=== PATIENT | male | born 1995 | race African-American/Black ===

== ENCOUNTER 2019-10-16 02:21 | Emergency (ER) | payer OTHER ==
[~2019-10-16] VITALS: Ht 172.7 cm; Wt 75.0 kg
[2019-10-16 02:30] VITALS: BP 132/67
== END 2019-10-16 04:25 | disposition home or self-care (01) ==
LOC: ER 02:21
DX: K29.00 Acute gastritis without bleeding (principal); R10.9 Unspecified abdominal pain; J45.909 Unspecified asthma, uncomplicated; F41.9 Anxiety disorder, unspecified
CPT/HCPCS: 99283

== ENCOUNTER 2020-01-05 23:29 | Emergency (ER) | payer OTHER ==
[~2020-01-05] VITALS: Ht 182.9 cm; Wt 75.0 kg
[2020-01-06 00:12] VITALS: BP 113/55
[2020-01-06 01:25] LABS: HEMATOCRIT. 42.7 % (42.0-52.0); HEMOGLOBIN. 14.9 g/dL (14.0-18.0); PLATELET 241 x1000/uL (130-400)
[2020-01-06 01:31] LABS: CHLORIDE 109 mEq/L (98-107)
[2020-01-06 01:35] LABS: BASOPHILS % 0.5 % (0.0-2.0); LYMPHOCYTES % 37.7 % (20.0-50.0); MEAN CORPUSCULAR HEMOGLOBIN 31.9 pg (28.0-32.0); MEAN CORPUSCULAR VOLUME 91.1 fL (80.0-94.0); MEAN PLATELET VOLUME 8.1 fl (7.4-10.4); MONOCYTES % 7.8 % (2.0-8.0); RED BLOOD CELL COUNT 4.69 mill/uL (4.7-6.1); RED CELL DISTRIBUTION WIDTH 13.4 % (11.6-14.6)
== END 2020-01-06 02:20 | disposition home or self-care (01) ==
LOC: ER 23:29
DX: R07.9 Chest pain, unspecified (principal); F41.9 Anxiety disorder, unspecified; F12.90 Cannabis use, unspecified, uncomplicated
CPT/HCPCS: 36415; 71045; 80048; 84484; 85025; 93005; 99285